=== PATIENT | female | born 1990 | race Caucasian/White ===

== ENCOUNTER → 2017-10-25 | Outpatient (CLI) | payer BC ==
--- NOTE | 2017-10-25 16:12 | RAD ---
EXAM DESCRIPTION: Ribs,Left 3 Views (accession [id number]), Sternum (accession [id number]) CLINICAL HISTORY: 27 years Female, ACQUIRED DEFORMITY OF CHEST AND RIB COMPARISON: None. TECHNIQUE/FINDINGS: AP and oblique images of the bony thorax and left ribs. Normal bone density of the sternum. No displacement. Normal bone density of the ribs. No displaced or angulated fractures. Soft tissues unremarkable. No abnormalities in the left lung. No pleural effusion or pneumothorax. IMPRESSION: Sternum and left ribs are unremarkable. No pulmonary or pleural complications. Electronically signed by: Matthieu Salomon MD 10/25/2017 4:10 PM CDT
--- NOTE | 2017-10-25 16:12 | RAD ---
EXAM DESCRIPTION: Ribs,Left 3 Views (accession [id number]), Sternum (accession [id number]) CLINICAL HISTORY: 27 years Female, ACQUIRED DEFORMITY OF CHEST AND RIB COMPARISON: None. TECHNIQUE/FINDINGS: AP and oblique images of the bony thorax and left ribs. Normal bone density of the sternum. No displacement. Normal bone density of the ribs. No displaced or angulated fractures. Soft tissues unremarkable. No abnormalities in the left lung. No pleural effusion or pneumothorax. IMPRESSION: Sternum and left ribs are unremarkable. No pulmonary or pleural complications. Electronically signed by: Matthieu Salomon MD 10/25/2017 4:10 PM CDT
== END ==
LOC: LAB.O 12:34
PROVIDERS: ATTEND Nurse Practitioner Family
DX: M95.4 Acquired deformity of chest and rib (principal); E02 Subclinical iodine-deficiency hypothyroidism